=== PATIENT | female | born 1970 | race Caucasian/White ===

== ENCOUNTER 2019-09-23 04:29 | Emergency (ER) | payer SELFPAY ==
[2019-09-23] VITALS (9 sets, daily range): BP systolic 93–125; BP diastolic 48–68; PULSE 50–56; RESP 12–52; TEMP 36.4–36.5; O2SAT 94–100; BMI 24.0
--- NOTE | 2019-09-23 04:46 | PC.NURSE ---
Patient states she was seen at a clinic today by Dr Quigley and she started having severe flank pain tonight. Patient states she passed out tonight after taking hydrocodone and that she feels weird .
--- NOTE | 2019-09-23 04:49 | ECG_ITS ---
Measurements Intervals [place] Rate: 48 P: 68 PA: 147 QRS: 42 QRSD: 95 T: 44 QT: 466 QTc: 418 SINUS BRADYCARDIA POSSIBLE LEFT ATRIAL ENLARGEMENT [-0.1mV P WAVE IN V1/V2] POSSIBLE RIGHT VENTRICULAR CONDUCTION DELAY [RSR (QR) IN V1/V2] No previous ECG available for comparison Electronically Signed On 09-23-2019 12:54:11 CDT by Kaylan Montes M.D. [id number]
--- NOTE | 2019-09-23 04:50 | W.ED.BACK ---
Documented by User: Nathan Anderson MD 09/23/19 05:55 HPI - Back Pain/Injury General: Chief Complaint: Back Pain/Injury Stated Complaint: right flank pain Time Seen by Provider: 09/23/19 04:30 Source: patient History of Present Illness: HPI Narrative: Quynh is a 49-year-old female states she has been having right sided low back and flank pain over the last day. Patient saw the urgent care yesterday and thought she may have a kidney stone. Patient states [place] has been helping her pain but overnight she took her [place] 2 hours ago woke up with some flank pain and had a syncopal event. She states she just felt lightheaded and passed out. Patient denies any vomiting or diarrhea. She denies any abdominal pain. Patient states that she is now pain-free. She states she has had no chest pain. She denies any headache. MD elicited complaint: back pain Onset (ago): day(s) Timing: constant Severity: mild Quality: sharp Associated symptoms: Reports nausea; Deny abdominal pain, chills, dysuria, fever(s) or vomiting Review of Systems Const: Denies: fever, chills, body aches or change in appetite Eyes: Denies: blurry vision or eye discomfort ENMT: Denies: throat pain or dental pain Card: Denies: chest pain Resp: Denies: shortness of breath GI: Reports: nausea; Denies: abdominal pain, vomiting or diarrhea : Reports: flank pain; Denies: painful urination Musc: Denies: neck pain or back pain Skin/Breast: Denies: rash Neuro: Denies: headache Psych: Denies: depression Luan/Lymph: Denies: easy bruising All/Imm: Denies: hives PFSH ED PFSH: Social History Smoking and tobacco status: never smoked Female Reproductive History: Date of last menstrual period: 07/15/19 Physical Exam Const: COMMON NORMALS: no apparent distress, oriented x3 and healthy appearing HENMT: COMMON NORMALS: normocephalic and head/scalp atraumatic HEAD & SCALP: normocephalic and atraumatic Eye: COMMON NORMALS: PERRL and EOMs intact bilaterally PUPIL: Yes PERRL Neck/C-Spine: COMMON NORMALS: full ROM and supple Chest: COMMONS NORMALS: inspection of chest normal and palpation of chest normal Resp: COMMON NORMALS: normal respiratory effort, no retractions, no use of accessory muscles and clear to auscultation bilaterally AUSCULTATION: clear to auscultation bilaterally Cardio: COMMON NORMALS: regular rate, regular rhythm and no murmurs RATE: regular rate RHYTHM: regular rhythm GI: COMMON NORMALS: normal to inspection, nondistended, normoactive bowel sounds, soft to palpation, non-tender and no masses PALPATION: Yes soft Extremity: COMMON NORMALS: normal to inspection and full ROM Neuro: COMMON NORMALS: oriented x3, moves all extremities and no focal motor deficits Psych: COMMON NORMALS: mental status grossly normal, thought process normal and cooperative THOUGHT PROCESS: normal thought process Skin: COMMON NORMALS: no rashes or lesions noted and no wounds GENERAL SKIN EXAM: no rashes or lesions noted Course Vital Signs: Vital signs: Vital Signs Temperature 97.7 F 09/23/19 08:01 Pulse Rate 53 L 09/23/19 08:01 Respiratory Rate 18 09/23/19 08:01 Blood Pressure 116/68 09/23/19 08:01 Pulse Oximetry 95 09/23/19 08:01 MDM - Back Pain/Injury MDM Narrative: Medical decision making narrative: pt presents here with flank pain and syncope. pt is pending ct scan. pt pain improved and bp is normal. pt care turned over to dr. villareal. Lab Data: Labs: Lab Results 09/23/19 09/23/19 09/23/19 Range/Units 05:01 05:09 05:09 WBC 5.1 (4.0-10.0) 10^3/ uL RBC 4.41 (4.1-5.3) 10^6/u L Hgb 12.5 (11.5-15.3) g/dL Hct 39.2 (37.0-47.0) % MCV 88.9 (81-99) fL MCH 28.3 (28.0-34.0) pg MCHC 31.9 (30.0-36.0) g/dL RDW 12.3 (12.1-15.1) % Plt Count 191 (130-400) 10^3/c mm MPV 11.4 H (7.4-10.4) fL Neut % (Auto) 51.3 % Lymph % (Auto) 37.8 % Walton % (Auto) 7.6 % Eos % (Auto) 2.7 % Baso % (Auto) 0.4 % Neut # (Auto) 2.6 (1.8-7.7) 10^3/u L Lymph # (Auto) 1.9 (0.8-4.8) 10^3/u L Walton # (Auto) 0.4 (0.2-0.9) 10^3/u L Eos # (Auto) 0.1 (0.0-0.8) 10^3/u L Baso # (Auto) 0.0 (0.0-0.1) 10^3/u L Nucleated RBC % (a uto) 0 % Nucleated RBCs # 0.0 /100WBC Sodium 138 (136-145) mmol/L Potassium 3.8 (3.5-5.1) mmol/L Chloride 102 (98-107) mmol/L Carbon Dioxide 25 (22-29) mmol/L Anion Gap 14.8 (5-19) BUN 15 (6-20) mg/dL Creatinine 0.7 (0.5-0.9) mg/dL GFR Calculation 88.2 L (90-130) mL/min Glucose 136 H (65-115) mg/dL Calculated Osmolal ity 284 L (285-295) mOsm/k g Calcium 9.1 (8.5-10.5) mg/dL Total Bilirubin 0.4 (0.15-1.2) mg/dL AST 14 (0-32) U/L ALT 11 (0-33) U/L Alkaline Phosphata se 86 (35-105) IU/L Total Protein 6.7 (6.6-8.7) g/dL Albumin 4.1 (3.5-5.2) g/dL Globulin 2.6 (1.3-4.6) g/dL Lipase 14 (13-60) U/L Urine Color Yellow (Yellow) Urine Appearance Hazy A (CLEAR) Urine pH 5 (5-7) Ur Specific Gravit y 1.030 (1.005-1.030) Urine Protein Neg (Negative) Urine Glucose (UA) Norm (Normal) Urine Ketones Negative (Negative) Urine Blood Neg (Negative) Urine Nitrate Negative (Negative) Urine Bilirubin Neg (NEGATIVE) Urine Urobilinogen Norm (Negative) mg/dL Ur Leukocyte Carol ase Negative (Negative) Urine RBC 0-4 H (0-2) /hpf Urine WBC None (0-5) /hpf Ur Squamous Epith Cells 10-15 H (0-5) Urine Bacteria 1+ H (NONE) Urine Mucus 2+ EKG Data^: EKG 1: Attestation: I personally reviewed and interpreted this EKG as follows: EKG interpretation date: 09/23/19 EKG interpretation time: 05:04 Interpretation: sinus ojanne hr [address] or t wave abnormalities qrs 95 qtc 433 Discharge Plan Discharge Patient Disposition: Home, Self-Care Clinical Impression: Back pain, sacroiliac, Strain of lumbar region Condition: Stable Prescriptions: New cyclobenzaprine 10 mg tablet 10 mg PO TID PRN (Reason: muscle spasm) Qty: 30 RF: 0 Discharge Orders: Discharge Order (Routine); Ordered 09/23/19 Ordered By: Tereso Villareal Referrals: Pepe Quigley DO [Primary Care Provider] - Discharge Diet: Usual diet Discharge Activity: Increase activity as tolerated Discharge Date/Time: 09/23/19 08:02 Sign Out Sign Out Data: Patient Sign Out occurred on 09/23/19 at 06:05. Patient's care was discussed, and care was transferred from to Tereso Villareal DO. Coding Level of Care Code ED Well Logging Captain for Chg Fwd Exam Comprehensive Documented by User: Tereso Villareal DO 09/25/19 23:12 HPI - Back Pain/Injury General: Chief Complaint: Back Pain/Injury Stated Complaint: right flank pain Time Seen by Provider: 09/23/19 04:30 PFSH ED PFSH: Social History Smoking and tobacco status: never smoked Course ED course: She has reproducible pain with movement and palpation of the low back in the paraspinal muscles. CT is unremarkable think some of the fluid in her pelvis may be related. She has no vaginal discharge or bleeding. We will go ahead and discharge her home follow-up with primary care return if has worsening problems Vital Signs: Vital signs: Vital Signs Temperature 97.7 F 09/23/19 08:01 Pulse Rate 53 L 09/23/19 08:01 Respiratory Rate 18 09/23/19 08:01 Blood Pressure 116/68 09/23/19 08:01 Pulse Oximetry 95 09/23/19 08:01 MDM - Back Pain/Injury Lab Data: Attestation: I reviewed the patient's lab results. Labs: Lab Results 09/23/19 09/23/19 09/23/19 Range/Units 05:01 05:09 05:09 WBC 5.1 (4.0-10.0) 10^3/ uL RBC 4.41 (4.1-5.3) 10^6/u L Hgb 12.5 (11.5-15.3) g/dL Hct 39.2 (37.0-47.0) % MCV 88.9 (81-99) fL MCH 28.3 (28.0-34.0) pg MCHC 31.9 (30.0-36.0) g/dL RDW 12.3 (12.1-15.1) % Plt Count 191 (130-400) 10^3/c mm MPV 11.4 H (7.4-10.4) fL Neut % (Auto) 51.3 % Lymph % (Auto) 37.8 % Walton % (Auto) 7.6 % Eos % (Auto) 2.7 % Baso % (Auto) 0.4 % Neut # (Auto) 2.6 (1.8-7.7) 10^3/u L Lymph # (Auto) 1.9 (0.8-4.8) 10^3/u L Walton # (Auto) 0.4 (0.2-0.9) 10^3/u L Eos # (Auto) 0.1 (0.0-0.8) 10^3/u L Baso # (Auto) 0.0 (0.0-0.1) 10^3/u L Nucleated RBC % (a uto) 0 % Nucleated RBCs # 0.0 /100WBC Sodium 138 (136-145) mmol/L Potassium 3.8 (3.5-5.1) mmol/L Chloride 102 (98-107) mmol/L Carbon Dioxide 25 (22-29) mmol/L Anion Gap 14.8 (5-19) BUN 15 (6-20) mg/dL Creatinine 0.7 (0.5-0.9) mg/dL GFR Calculation 88.2 L (90-130) mL/min Glucose 136 H (65-115) mg/dL Calculated Osmolal ity 284 L (285-295) mOsm/k g Calcium 9.1 (8.5-10.5) mg/dL Total Bilirubin 0.4 (0.15-1.2) mg/dL AST 14 (0-32) U/L ALT 11 (0-33) U/L Alkaline Phosphata se 86 (35-105) IU/L Total Protein 6.7 (6.6-8.7) g/dL Albumin 4.1 (3.5-5.2) g/dL Globulin 2.6 (1.3-4.6) g/dL Lipase 14 (13-60) U/L Urine Color Yellow (Yellow) Urine Appearance Hazy A (CLEAR) Urine pH 5 (5-7) Ur Specific Gravit y 1.030 (1.005-1.030) Urine Protein Neg (Negative) Urine Glucose (UA) Norm (Normal) Urine Ketones Negative (Negative) Urine Blood Neg (Negative) Urine Nitrate Negative (Negative) Urine Bilirubin Neg (NEGATIVE) Urine Urobilinogen Norm (Negative) mg/dL Ur Leukocyte Carol ase Negative (Negative) Urine RBC 0-4 H (0-2) /hpf Urine WBC None (0-5) /hpf Ur Squamous Epith Cells 10-15 H (0-5) Urine Bacteria 1+ H (NONE) Urine Mucus 2+ Imaging Data^: CT Abd/Pel: Radiologist's impression: PROCEDURE INFORMATION: Exam: CT Abdomen And Pelvis With Contrast Exam date and time: 09/23/2019 5:48 AM Age: 49 years old Clinical indication: Abdominal pain; Flank; Right; Prior surgery; Surgery date: 6+ months; Surgery type: ; Additional info: Flank pain TECHNIQUE: Imaging protocol: Computed tomography of the abdomen and pelvis with intravenous contrast. Total DLP: 632.06 mGy-cm Radiation optimization: All CT scans at this facility use at least one of these dose optimization techniques: automated exposure control; mA and/or kV adjustment per patient size (includes targeted exams where dose is matched to clinical indication); or iterative reconstruction. Contrast material: OMNI 300; Contrast volume: 95 ml; Contrast route: 20G; COMPARISON: No relevant prior studies available. FINDINGS: Mild atelectasis at bilateral lung bases. Diffuse periportal edema in the liver (mild). This is nonspecific but may be seen with fluid overload states. There is a 0.9 cm hypodensity in the hepatic dome (series 2, image 7). Etiology and clinical significance are uncertain. The gallbladder, pancreas, adrenal glands, and kidneys are unremarkable. Several small calcified granulomata in the spleen. A normal-appearing appendix is seen in the right lower quadrant. No evidence of bowel obstruction. No evidence of diverticulitis. No free intraperitoneal air identified. Mild free fluid in the pelvis (series 2, image 75). This finding is abnormal but nonspecific. The bladder and uterus are unremarkable. The abdominal aorta is nonaneurysmal. There is a 2.4 cm x 1.8 cm probable hemangioma in the vertebral body of L3 on the right. CT/CT abdomen pelvis w con* [id number] IMPRESSION: 1. Mild free fluid in the pelvis. This finding is abnormal but nonspecific. Radiation Dose CTDIVOL = (mGy): DLP = 632.06 (mGy-cm) Dictated By:Maximino Jimenez MD Discharge Plan Discharge Patient Disposition: Home, Self-Care Clinical Impression: Back pain, sacroiliac, Strain of lumbar region Condition: Stable Prescriptions: New cyclobenzaprine 10 mg tablet 10 mg PO TID PRN (Reason: muscle spasm) Qty: 30 RF: 0 Discharge Orders: Discharge Order (Routine); Ordered 09/23/19 Ordered By: Tereso Villareal Referrals: Pepe Quigley DO [Primary Care Provider] - Discharge Diet: Usual diet Discharge Activity: Increase activity as tolerated Discharge Date/Time: 09/23/19 08:02 Sign Out Sign Out Data: Patient Sign Out occurred on 09/23/19 at 06:05. Patient's care was discussed, and care was transferred from to Tereso Villareal DO. Coding Level of Care Code ED Well Logging Captain for g Fwd Exam Comprehensive
--- NOTE | 2019-09-23 04:59 | PC.NURSE ---
Patient ambulated to bathroom with clean catch packaging, clean catch education provided to patient.
--- NOTE | 2019-09-23 05:09 | PC.NURSE ---
UA sent to lab
[2019-09-23] MEDS: sodium chloride 0.9% 1,000 ML 999 ML IV (05:11)
[2019-09-23 05:18] LABS: Basophils % 0.4 %; Eosinophils # 0.1 10^3/uL (0.0-0.8); Eosinophils % 2.7 %; Hematocrit 39.2 % (37.0-47.0); Hemoglobin 12.5 g/dL (11.5-15.3); Lymphocytes # 1.9 10^3/uL (0.8-4.8); Lymphocytes % 37.8 %; Mean Corpuscular HGB Conc 31.9 g/dL (30.0-36.0); Mean Corpuscular Hemoglobin 28.3 pg (28.0-34.0); Mean Corpuscular Volume 88.9 fL (81-99); Mean Platelet Volume 11.4 fL (7.4-10.4); Monocytes # 0.4 10^3/uL (0.2-0.9); Monocytes % 7.6 %; Neutrophils # 2.6 10^3/uL (1.8-7.7); Neutrophils % 51.3 %; Nucleated Red Blood Cells % 0 %; Platelet Count 191 10^3/cmm (130-400); Red Blood Count 4.41 10^6/uL (4.1-5.3); Red Cell Distribution Width 12.3 % (12.1-15.1); White Blood Count 5.1 10^3/uL (4.0-10.0)
--- NOTE | 2019-09-23 05:19 | PC.NURSE ---
BLOOD TAKEN TO LAB BY NURSE
[2019-09-23 05:21] LABS: Add Urine Microscopic? YES; Bilirubin Urine Neg (NEGATIVE); Blood Urine Neg (Negative); Glucose Urine UA Norm (Normal); Ketones Urine Negative (Negative); Leukocyte Esterase Urine Negative (Negative); Nitrate Urine Negative (Negative); Protein Urine Neg (Negative); Urine Appearance Hazy (CLEAR); Urine Color Yellow (Yellow); Urobilinogen Urine Norm (Negative); pH Urine 5 (5-7)
--- NOTE | 2019-09-23 05:25 | CTR_ITS ---
PROCEDURE INFORMATION: Exam: CT Abdomen And Pelvis With Contrast Exam date and time: 09/23/2019 5:48 AM Age: 49 years old Clinical indication: Abdominal pain; Flank; Right; Prior surgery; Surgery date: 6+ months; Surgery type: ; Additional info: Flank pain TECHNIQUE: Imaging protocol: Computed tomography of the abdomen and pelvis with intravenous contrast. Total DLP: 632.06 mGy-cm Radiation optimization: All CT scans at this facility use at least one of these dose optimization techniques: automated exposure control; mA and/or kV adjustment per patient size (includes targeted exams where dose is matched to clinical indication); or iterative reconstruction. Contrast material: OMNI 300; Contrast volume: 95 ml; Contrast route: 20G; COMPARISON: No relevant prior studies available. FINDINGS: Mild atelectasis at bilateral lung bases. Diffuse periportal edema in the liver (mild). This is nonspecific but may be seen with fluid overload states. There is a 0.9 cm hypodensity in the hepatic dome (series 2, image 7). Etiology and clinical significance are uncertain. The gallbladder, pancreas, adrenal glands, and kidneys are unremarkable. Several small calcified granulomata in the spleen. A normal-appearing appendix is seen in the right lower quadrant. No evidence of bowel obstruction. No evidence of diverticulitis. No free intraperitoneal air identified. Mild free fluid in the pelvis (series 2, image 75). This finding is abnormal but nonspecific. The bladder and uterus are unremarkable. The abdominal aorta is nonaneurysmal. There is a 2.4 cm x 1.8 cm probable hemangioma in the vertebral body of L3 on the right. CT/CT abdomen pelvis w con* [id number] IMPRESSION: 1. Mild free fluid in the pelvis. This finding is abnormal but nonspecific. Radiation Dose CTDIVOL = (mGy): DLP = 632.06 (mGy-cm)
[2019-09-23 05:29] LABS: RBC Urine 0-4 /hpf (0-2)
[2019-09-23 05:30] LABS: Add Urine Culture? No; Bacteria Urine 1+; Mucus Urine 2+
[2019-09-23 05:51] LABS: Alanine Aminotransferase 11 U/L (0-33); Albumin Level 4.1 g/dL (3.5-5.2); Alkaline Phosphatase 86 IU/L (35-105); Anion Gap 14.8 (5-19); Aspartate Amino Transferase 14 U/L (0-32); Blood Urea Nitrogen 15 mg/dL (6-20); Calcium 9.1 mg/dL (8.5-10.5); Carbon Dioxide 25 mmol/L (22-29); Chloride 102 mmol/L (98-107); Creatinine Clr Calc Pharmacy 87.3896; Globulin 2.6 g/dL (1.3-4.6); Glomerular Filtration Rate 88.2 mL/min (90-130); Glucose 136 mg/dL (65-115); Lipase 14 U/L (13-60); Osmolality Calculated 284 mOsm/kg (285-295); Potassium 3.8 mmol/L (3.5-5.1); Sodium 138 mmol/L (136-145); Total Bilirubin 0.4 mg/dL (0.15-1.2); Total Protein 6.7 g/dL (6.6-8.7)
[2019-09-23] MEDS: morphine 4 mg/mL SDV 1 mL IVP (05:53)
[2019-09-23] MEDS: ondansetron 2 mg/ML SDV 2 mL 4 MG IVP (05:53)
--- NOTE | 2019-09-23 06:00 | PC.NURSE ---
PATIENT TO CT
[2019-09-23] MEDS: iohexol 300 mg/mL 100 mL Btl IV (06:09)
--- NOTE | 2019-09-23 06:16 | PC.NURSE ---
PATIENT BACK FROM CT
== END 2019-09-23 08:02 | disposition home or self-care (01) ==
PROVIDERS: Emergency Medicine; Emergency Provider Family Medicine; Family Provider Family Medicine; PCP Family Medicine
DX: S39.012A Strain of muscle, fascia and tendon of lower back, initial encounter (principal); X58.XXXA Exposure to other specified factors, initial encounter
CPT/HCPCS: 12345; 74177; 80053; 81001; 83690; 85025; 93005; 96360; 96361; 96374; 96375; 99283; 99285; A9270; J2270; J2405; J7030; Q9967

== ENCOUNTER 2021-10-11 07:56 | Outpatient (CLI) | payer SELFPAY ==
--- NOTE | 2021-10-11 08:05 | MM_ITS ---
WS: [id number] VIEWS: MLO and CC views both breasts. 3D digital tomosynthesis is also included in this exam. Comparison made with prior exam of 05/15/2017. Findings: There was no sign of mass, architectural distortion or suspicious calcification in either breast. He terogeneously dense MM/[place] [id number] Impression: BI-RADS: 2-Benign FOLLOW-UP: 1 Year Follow-up This mammogram was also analyzed by the Computer Aided Detection System R2 Imag e Drivematic Machine Operator.
== END 2021-10-11 07:57 | disposition home or self-care (01) ==
PROVIDERS: PCP Family Medicine; Visit Provider Clinical Nurse Specialist Adult Health
DX: Z12.31 Encounter for screening mammogram for malignant neoplasm of breast (principal)
CPT/HCPCS: 77063; 77067

== ENCOUNTER → 2022-04-07 17:12 | Outpatient (BNVA) | payer SELFPAY | PROVIDERS: PCP Family Medicine; Visit Provider Family Medicine | DX: J06.9 Acute upper respiratory infection, unspecified (principal) | CPT/HCPCS: 87426 ==

== ENCOUNTER 2022-04-15 08:38 | Outpatient (CLI) | payer SELFPAY ==
--- NOTE | 2022-04-15 08:44 | XRR_ITS ---
PROCEDURE INFORMATION: Exam: XR Chest Exam date and time: 04/15/2022 8:49 AM Age: 51 years old Clinical indication: Cough and shortness of breath; Patient HX: History--sob, cough for 3 weeks; Additional info: Persistent SOB TECHNIQUE: Imaging protocol: Radiologic exam of the chest. Views: 2 views. COMPARISON: CT abdomen pelvis w con* [id number] 09/23/2019 6:23 AM FINDINGS: Lungs: Small benign calcified granulomas are present in the lungs. No pneumonia. Pleural spaces: Unremarkable. No pleural effusion. No pneumothorax. Heart/Mediastinum: Unremarkable. No cardiomegaly. Bones/joints: There is moderate thoracic scoliosis. XR/XR chest 2V* [id number] IMPRESSION: No acute abnormality.
== END 2022-04-15 08:39 | disposition home or self-care (01) ==
LOC: RAD 08:39
PROVIDERS: PCP Family Medicine; Visit Provider Family Medicine
DX: R06.02 Shortness of breath (principal)
CPT/HCPCS: 71046

== ENCOUNTER → 2022-04-16 15:35 | Outpatient (BNVA) | payer SELFPAY | PROVIDERS: PCP Family Medicine; Visit Provider Family Medicine | DX: R50.9 Fever, unspecified (principal); R53.1 Weakness | CPT/HCPCS: 80053; 85025; 86140; 86665 ==

== ENCOUNTER → 2024-08-04 16:09 | Outpatient (BNVA) | payer SELFPAY | PROVIDERS: PCP Family Medicine; Visit Provider Clinical Nurse Specialist Adult Health | DX: Z12.4 Encounter for screening for malignant neoplasm of cervix (principal) | CPT/HCPCS: 87624 ==

== ENCOUNTER → 2024-08-18 12:51 | Outpatient (BNVA) | payer SELFPAY | PROVIDERS: PCP Family Medicine; Visit Provider Family Medicine | DX: Z13.6 Encounter for screening for cardiovascular disorders (principal) | CPT/HCPCS: 80053; 80061 ==